=== PATIENT | male | born 1950 | race Caucasian/White ===

== ENCOUNTER 2016-09-16 12:32 | Inpatient (IN) | payer OTHER ==
[2016-09-16] VITALS (22 sets, daily range): BP systolic 96–161; BP diastolic 55–98; PULSE 69–99; RESP 12–20; O2SAT 93–99
[~2016-09-16] VITALS: Ht 188 cm; Wt 132.8 kg
[2016-09-16] MEDS ORDERED: Nitroglycerin 2% 1 Gm Ointment TOPICAL ONE ×2 (12:54→13:00)
--- NOTE | 2016-09-16 12:57 | ED.REPORT ---
HPI-Chest Pain 40 and Over Date of Service Sep 16, 2016 ED Provider: Geovanni Jimenez MD 65 year old male presents to the ER accompanied by his due to chest pain that awakened him from sleep at 03:00 this morning. He states that symptoms have been improving since onset and are currently mostly resolved with only a mild substernal discomfort. He also reports radiation of pain and numbness through his left shoulder and arm. Associated symptoms include nausea and diaphoresis. Patient takes 81mg ASA daily. Nursing Notes Stated Complaint: CHEST PAIN/SHOULDER PAIN Chief Complaint: Chest Pain Nursing Notes Reviewed: Yes Allergies: Coded Allergies: Penicillins (Verified Allergy, Unknown, 09/16/16) General Time Seen by MD: 12:56 Chief Complaint Chest pain Hx Obtained From: Patient, Spouse Arrived By: Walk-in Sudden in Onset?: Yes Onset Occurred: 9 - 12 hours ago (03:00) Symptom Duration: Since onset Location: : Substernal Quality: Painful Radiation: : Arm left Severity: Current: Moderate Severity: Maximum: Moderate Associated with: Reports: Diaphoresis, Nausea, Numbness/Tingling, Denies: Vomiting Pertinent Negative: Pt denies other symptoms Past Medical History Smoking History Unknown if Ever Smoker Social History Other Social History: Good social support, Ambulatory Status Independent Review of Systems Constitutional: Denies: Chills, Fever Respiratory: Denies: Non-productive cough, Shortness of breath Cardiovascular: Reports: Chest pain GI: Reports: Nausea, Denies: Vomiting Musculoskeletal: Reports: Extremity pain (Left arm), Joint pain Skin: Reports Diaphoresis Neurologic: Reports: Numbness (Left arm) Complete sys rev & neg: except as marked. Physical Exam Initial Vital Signs Vital Signs (First) Date Time Temp Pulse Resp B/P Pulse Ox O2 Delivery O2 Flow Rate FiO2 09/16/16 12:35 36.9 94 15 161/98 97 Room Air Initial VS: Reviewed Head / Eyes: Atraumatic, Normocephalic Neck: Supple, Non-tender, Full range of motion Extremities: Vascular intact, Neuro intact, No swelling, No tenderness Skin: Warm, Dry, No cyanosis Neurologic: Alert, Oriented, Nonfocal Psychiatric: Mood/affect normal, Behavior normal, Normal thought content General/Constitutional: Awake, Alert, Well developed, Well nourished Appearance / Presentation: Positive: Obese Respiratory / Chest: Breath sounds NL, Breath sounds = bilat, No respiratory distress, No rales, No rhonchi, No wheezing, No stridor, No chest tenderness Cardiovascular: Heart rate NL, Regular rhythm, Heart sounds NL, No murmurs, Peripheral circulation NL, Pulses = bilaterally, No gross BP differential Abdomen: Soft, Non-tender, No guarding, No rebound, No distention Interpretation & Diagnostics Lab Results Interpretation Result Diagram: 09/16/16 1245 Test 09/16/16 12:45 White Blood Count 7.1th/mm3 (3.8-10.1) Red Blood Count 5.40mil/mm3 (4.40-5.80) Hemoglobin 16.4g/dL (13.8-17.2) Hematocrit 47.5% (41.0-50.0) Mean Corpuscular Volume 88.0fL (81-100) Mean Corpuscular Hemoglobin 30.4pg (27.0-35.0) Mean Corpuscular Hemoglobin Concent 34.5% (32.0-37.0) Red Cell Distribution Width 14.3% (12.3-15.4) Platelet Count 210bil/L (150-400) Neutrophils (%) (Auto) 70.9% (40-74) Lymphocytes (%) (Auto) 17.5% (14-46) Monocytes (%) (Auto) 8.3% (4-12) Eosinophils (%) (Auto) 2.1% (0-5) Basophils (%) (Auto) 0.8% (0-3) Hold Thompson Top Tube Received (Received) ECG Interpretation ECG Interpretation: Sinus rhythm, rate 80 Acute lateral infarct STEMI Time: 12:52 Interpreted by: ED physician Re-Eval/Medical Decision Med Decision/Clinical Course I saw the ECG at 12:52 and immediately went into the patient room. Source of Hx: Old records Time of Eval: 13:04 Re-Evaluation/Progress Note: Discussed need for admission. Patient is amenable to the plan. All other questions addressed. Consultation : Referral / Consult Name: Mustapha Pérez MD Consulted With: Cardiology Call Returned at: 13:07 Note: Supervisor [employer] is now present. Discussed patient case with Dr. Pérez. Counseled Regarding: Diagnosis, Lab results, Need for admission Discharge & Departure Primary Impression: STEMI (ST elevation myocardial infarction) Additional Impression: Chest pain Disposition: ADMITTED TO HOSPITAL Discharge Condition All VS Reviewed: Yes Condition: Stable Crit Care Except Billable Proc Time Spent: 30-74 minutes Services Performed: Patient management by me, Time spent at bedside, Reviewing test results, Reviewing imaging, Discussing patient care, Documentation in record, Time with fam/surrogate Scribe Attestation Portions of this note were transcribed by Heraclio Kelley. I, Dr. Jimenez, personally performed the history, physical exam and medical decision-making; I reviewed and confirmed the accuracy of the information in the transcribed note. Signed by: Chayo Soto, 09/16/2016 and 13:22 Geovanni Jimenez MD Sep 16, 2016 12:56 HERACLIO KELLEY Sep 16, 2016 13:10 Geovanni Jimenez MD Sep 16, 2016 12:56 HERACLIO KELLEY Sep 16, 2016 13:10
[2016-09-16] MEDS ORDERED: Ondansetron 2 mg/mL 2 mL Inj IVPUSH ONE (13:00)
[2016-09-16] MEDS ORDERED: Heparin 5,000 Unit/mL Inj IVPUSH ONE (13:00)
[2016-09-16] MEDS ORDERED: Heparin 25K Unit/500mL 0.45 NS 25,000 UNIT in IV Premix 1 EACH IV SCH (13:00)
[2016-09-16] MEDS ORDERED: Heparin 5,000 Unit/mL Inj IVPUSH PRN (13:00)
[2016-09-16] MEDS ORDERED: MeTOProlol 1 mg/mL 5 mL Inj IVPUSH PRN (13:00)
[2016-09-16 13:02] LABS: BASOPHILS % (AUTO) 0.8 % (0-3); EOSINOPHILS % (AUTO) 2.1 % (0-5); MONOCYTES % (AUTO) 8.3 % (4-12); Mean Corpuscular Hemoglobin 30.4 pg (27.0-35.0); NEUTROPHILS % (AUTO) 70.9 % (40-74); Platelet Count 210 bil/L (150-400)
[2016-09-16] MEDS ORDERED: Heparin 1,000 Unit/mL 10 mL Inj ONE ×2 (13:04→13:36)
[2016-09-16] MEDS ORDERED: Nitroglycerin 50,000 mcg/250 mL D5W Premix IV ONE (13:04)
[2016-09-16] MEDS ORDERED: Heparin 5,000 Units/500 mL NS Premix IV ONE ×2 (13:04→13:43)
[2016-09-16] MEDS ORDERED: Heparin 1,000 Units/500 mL NS Premix IV ONE (13:04)
[2016-09-16] MEDS ORDERED: fentaNYL-PF 50 mCg/mL 2 mL Inj ONE (13:23)
[2016-09-16 13:40] LABS: Magnesium 1.8 mg/dL (1.6-2.6)
[2016-09-16 13:49] LABS: TROPONIN T 0.048 ug/L (0.0-0.011)
[2016-09-16] MEDS ORDERED: Atropine 1 mg/10 mL (Code) Syringe ONE (13:49)
[2016-09-16] MEDS ORDERED: Phenylephrine/NS-PF 100 mCg/mL 5 mL Syringe IVPUSH ONE (13:49)
[2016-09-16] MEDS ORDERED: Ondansetron 2 mg/mL 2 mL Inj ONE (13:52)
[2016-09-16] MEDS ORDERED: Alum-Mag Hydrox-Simeth 30 mL Suspension PO PRN (15:45)
[2016-09-16] MEDS ORDERED: Ondansetron 2 mg/mL 2 mL Inj IVPUSH PRN (15:45)
--- NOTE | 2016-09-16 15:54 | PCM.HPMED ---
Subjective Date of Service Sep 16, 2016 Primary Provider: Admitting Physician: Primary Care Physician: Gil Mckeon MD Attending Physician: Mustapha Pérez MD Chief Complaint: Chest shoulder pain HISTORY was OBTAINED FROM PATIENT / MEDITECH NOTES History of present illness 65-year-old male with woke up at 3 in the morning because of chest pain substernal radiates left shoulder arm with nausea sweating, found to have a STEMI, PDA was occluded and stented by Dr. Pérez. Patient had vagal symptoms and arrhythmia post procedure but has stabilized. No prior MIs, Intermittent shortness of breath associated with irregular heartbeat appears to be associated with pauses, full primary care workup with an echo and stress EKG previously. 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 - 115/67, 96% room air, pulse 75 Review of Systems - none of the following - F/C/sick contact / LALA / lightheaded / dizziness / sob / cough / cp / n/v/diarrhea / bleeding/bruising / change in voiding // rash ambulates Intermittent acid reflux depending on food and excessive fluid intake at times FAMILY HX diabetes CVA SOCIAL HX never smoker no alcohol no illicit drug use MEDICATIONS Aspirin 81 daily Ibuprofen for arthritis Past Medical/Surgical HX Cholecystectomy tonsillectomy osteoarthritis irregular heartbeat chronic low back pain varicose veins Ankle swell left greater than right right mi diffuse purpura type of dermatitis managed by primary care No prior PVD no claudication Allergies Coded Allergies: Penicillins (Verified Allergy, Unknown, 09/16/16) PMH Social History Hx Alcohol Use: Yes Alcoholic Drinks Per Day: occasional Hx Substance Use: No Smoking Status: Unknown if Ever Smoker Exam Vital Signs Vital Sign - Last Date Time Temp Pulse Resp B/P Pulse Ox O2 Delivery O2 Flow Rate FiO2 09/16/16 15:30 76 15 117/60 99 09/16/16 12:35 36.9 Room Air Lab and Diagnostics Labs Exam on admission On room air NAD A and O x 3 mood affect WNL NC/AT no icterus no injected eyes EOMI PERRL /no pharyngeal lesions/ no oral lesions / hearing intact Supple neck CTAB equal chest rise / no accessory muscle use / speaks in full sentences / no rrw RRR S1 S2 / no mrg / 2+ radial pulses Soft nt nd + BS no hepatosplenomegaly Mild edema bilateral lower extremities ankles no cyanosis no ecchymosis of lower extremities No jaundice JARRETT Varicose veins of bilateral shins Dermatitis right mi dark diallo/purple diffuse, dermatitis left superior mi red /petechial Right groin dressed clean dry and intact Bilateral shins without hair Pulses need to be dopplered on bilateral feet EKG sinus rhythm 80, ST depression in inferior leads, ST elevation in lateral leads>>> resolved post cath Trop 0.048 in the ER at 1 PM Creatinine 0.89 LFT normal Imaging CXR pending Result Diagram: 09/16/16 1245 09/16/16 1245 Assessment & Plan Active issues and reason for admission STEMI, PDA occluded and stented -- started Effient aspirin IV fluids statin A1c pending lipid panel -- Anticipate cardiology to start metoprolol and lisinopril in the morning or later -- Pending echo Glucose 114 -- A1c pending Chronic peripheral lower extremity edema using avani hose at home w/ NO PVD, NO claudication, despite hairless legs/weak lower extremity pulses - chronic likely --encouraged exercise and to monitor hypotension w/ new bp meds he'll be taking intemrittent GERD --curb diet --trial famotidine, anticipate no need at home when diet is curbed. Chronic issues known prior to admission, present on admission osteoarthritis chronic low back irregular heartbeat Ankle swell left greater than right right mi diffuse purpura type of dermatitis managed by primary care --prn morphine Diet cardiac DVT prophylaxis heparin ambulate Code full inpatient status Assessment and plan were discussed with patient family. Davidson Cox MD Sep 16, 2016 15:54
--- NOTE | 2016-09-16 17:04 | CS94 ---
[address] [address] DIAGNOSTIC CARDIAC CATHETERIZATION PATIENT: GIAN CRAIG : 1950 MR#: [id number] ADMIT: 09/16/2016 JOB ID: [id number] SERVICE DATE: 09/16/2016 FIELD ARTILLERY OPERATIONS SPECIALIST: Mustapha Pérez MD PROCEDURES: 1. Coronary angiogram, emergent. 2. Left heart catheterization (LHC). Pressure measurement. 3. Percutaneous coronary intervention (PCI). Xience drug-eluting stent (CATARINO). INCOMPLETE DICTATION: Dictation ends here. NOTE: Dictation interrupted. See subsequent complete procedure note. ET. MTDD
--- NOTE | 2016-09-16 18:38 | NUR ---
[facility] Patient to [facility] bed 2 from nitriles lab technician at 1445. at bedside. Right groin perclose developed an ooze when MD checking groin. Femstop placed at 50 mmHg for 1 1/2 hr. Removed at 1630. No further bleeding noted. No hematoma. Pedal pulses present pr doppler. Taking PO and void pr urinal. C/O 1/10 pain in right knee on arrival which resolved to 0/10. Transferred by bed to room 2022 at 1830. Report to receiving RN.
--- NOTE | 2016-09-16 18:54 | CS94 ---
[address] [address] DIAGNOSTIC CARDIAC CATHETERIZATION PATIENT: GIAN CRAIG : 1950 MR#: [id number] ADMIT: 09/16/2016 JOB ID: [id number] PROCEDURE NOTE--CARDIAC CATHETERIZATION LABORATORY DATE OF PROCEDURE: September. BAGGAGE PORTER HEAD: Mustapha Pérez M.D. PROCEDURES: 1. Cardiac Catheterization: a. Coronary Angiogram--Emergent. b. Left Heart Catheterization (LHC)--Pressure Measurement. 2. Percutaneous coronary intervention (PCI)--Xience CATARINO 2.5 x 15 mm of Dstal PDA. CLINICAL DETAILS: This 65-year-old man--who has untreated borderline hypertension and no prior history of heart disease--presents by personal vehicle to the Emergency Department today about 9.5 hours after the onset of severe retrosternal chest pressure. After about 6 hours, his pressure was substantially relieved; but there is still mild residual chest discomfort. ECG shows ST straightening and mild ST elevation in leads I and aVL with inferior ST depression. PROCEDURAL DETAILS: I evaluated him emergently and discussed with him and his regarding the findings, impressions and management, considerations including the recommendation to proceed emergently to cardiac catheterization and anticipated PCI. We discussed the procedure including the benefits as well as possible risks and complications. We discussed bleeding infection, blood clot; as well as injury to nerve, artery, vein or kidney; and also arrhythmia, drug reaction; or others. We discussed treatment as needed including surgery, pacemaker, transfusion. We discussed more serious complications that are possible in this life-threatening clinical setting including stroke, heart attack, and emergency surgery including transfer for coronary bypass surgery. After discussion and questions, he signed informed consent to proceed. In the emergency department, he received aspirin 324 mg and Heparin IV bolus. He was taken to the catheterization laboratory emergently where he was prepped sterilely and draped. CORONARY ANGIOGRAM: Arterial access was obtained without difficulty in the right common femoral artery using fluoroscopic localization over the femoral head and modified Seldinger technique to insert a 6-Luxembourgish 10 cm side-arm sheath. Catheters were advanced and exchanged over a 0.0135 inch J-tipped guide wire. First, the right coronary artery was imaged using a 6-Luxembourgish JR-4 catheter. Then, the left coronary artery was engaged using a 6-Luxembourgish JL-4 diagnostic catheter. At the end of the procedure, a catheter was placed in the LVED and measurements were made including LVED and pullback. PCI OF DISTAL PDA (posterior descending artery): The diagnostic angiogram was reviewed. Decision was made to proceed with emergent intervention of the occluded distal PDA. Procedural anticoagulation was obtained with bolus IV heparin to achieve therapeutic ACT. Prior to the Intervention, he received a loading dose of prasugrel 60 mg p.o. Aliquots of NTG IC were used as needed during the intervention. The RCA was engaged with a 6-Luxembourgish JR-4 guide catheter. The occluded PDA was crossed with a BMW wire--0.014 inches x 190 cm--placed distally in the PDA. Then, the artery was opened with a Trek balloon--2.5 x 15 mm--and inflated to 6 atmospheres across the occlusion. The artery was open and improved. There was a residual subtotal 95% tubular lesion in the distal PDA. The patient had some reperfusion arrhythmias including mild bradycardia and hypotension which were treated with bolus doses of Zach-Synephrine 100 mcg IV. He was overall stable. Estimated DTB 74 minutes. STENT: The lesion was next treated with a drug-eluting stent (CATARINO)--Xience 2.5 x 15 mm--deployed across the lesion at 10 atmospheres. POSTDILATATION : The proximal part of the stent was postdilated with a noncompliant Trek NC balloon--2.5 x 8 mm--inflated at 16 atmospheres. There is an excellent angiographic result with resumption of JUDY-3 flow; no residual lesion; and no evident angiographic complication. Procedure without difficulty. Patient tolerated the procedure well. No complications. A side-arm sheath angiogram shows adequate access for a closure device. Arterial hemostasis was obtained without difficulty with a Perclose suture. There was some tract oozing that responded to manual pressure. The patient was transferred from the catheterization laboratory chest-pain free, improved, and stable, to the [facility] unit for ongoing care including by the admitting hospitalist team. I discussed the procedure, findings and management considerations with the patient, with his , with the Hospitalist team and with Cardiology. FINDINGS: 1. LMCA: The left main coronary artery is large and intact. 2. LAD: The left anterior descending coronary artery is a large vessel, reaching just around the apex. Its distribution includes three small diagonals. There are no angiographically significant LAD lesions. 3. LCX: The left circumflex coronary artery has a large distribution, and includes one large obtuse marginal with no angiographic obstructive lesions. 4. RAMUS: There is a large branching ramus vessel with no angiographic obstructive lesions. 5. RCA: Dominant. The right coronary artery is a very large vessel with some tortuosity. There is a moderate to large sized right posterolateral branch. The PDA is large in its proximal portion and then occluded. When opened there is a residual subtotal tubular 95% lesion in the Mid PDA. The PDA tapers rapidly after the lesion and terminates as a much smaller vessel shortly after the lesion. 6. LHC: LVED 15 mmHg; and no systolic gradient on pullback across the aortic valve. CONCLUSIONS: 1. ACS (acute coronary syndrome)--presentation with atypical ECG with ST elevation that is atypical for the location of the occluded culprit artery. 2. PCI-Distal PDA; Xience CATARINO 2.5 x 15 mm. 3. CAD (Coronary Artery Disease)--Single-vessel CAD of PDA. RECOMMENDATIONS: 1. ECASA--indefinitely. 2. Prasugrel--plan prasugrel for one year if well tolerated including with ongoing cardiology followup. I discussed with the patient and his not to miss prasugrel for any reason without immediate cardiology consultation. 3. Echocardiogram. 4. OMT--guideline-directed optimal medical therapy including for his apparent hypertension including aspirin, prasugrel, statin, beta-rochelle and consideration of BESSIE inhibitor. [facility]
--- NOTE | 2016-09-16 18:58 | CONS ---
[address] [address] CONSULTATION REPORT PATIENT: GIAN CRAIG : 1950 MR#: [id number] ADMIT: 09/16/2016 JOB ID: [id number] DATE OF SERVICE: 09/16/2016 CARDIOLOGY CONSULTATION NOTE--INITIAL CRITICAL CARE EVALUATION(EMERGENCY DEPARTMENT): DATE OF EVALUATION: FRIDAY, SEPTEMBER 16, 2016 CONSULTING PHYSICIAN: Cardiology--Mustapha Pérez MD. PROBLEM LIST: 1. Acute coronary syndrome (ACS): Chest pain. Presenting with ischemic time 9-1/2 hours after the onset of chest pain. ST-elevation myocardial infarction (STEMI): Atypical ECG with ST elevation in leads L1 and aVL; and inferior ST depression. Coronary Artery Disease (CAD) risk factors: a. Hypertension--History of borderline blood pressure; not treated. b. No history of diabetes. c. No history of treated hyperlipidemia. d. No family history of premature coronary disease. e. Lifetime nonsmoker. OTHER PROBLEMS: Morbid obesity. CHIEF COMPLAINT: 1. Chest pain. 2. Called by the ED for ST-elevation myocardial infarction (STEMI). HISTORY OF PRESENT ILLNESS: I came to see this 65 yo patient emergently when called for a "STEMI activation " after he presented by personal vehicle to the Emergency Department(ED). He has no prior history of heart disease and no recent premonitory symptoms. This morning he was awakened at 3 a.m. with severe retrosternal chest pressure radiating to his upper chest and arms. He had some associated vagal symptoms with nausea and some tenesmus. He was not short of breath. After 3 hours the most severe pain abated, but on presentation he still had 2/10 to 3/10 residual chest discomfort. In the ED he was otherwise stable, with systolic hypertension. He was treated with aspirin 324 mg; and heparin bolus. CARDIAC HISTORY: He has no prior history of heart disease and no symptoms of chest pain, angina, effort limitation, or effort-related symptoms. He has no symptoms of heart failure such as nocturnal dyspnea, or edema. He has no symptoms of arrhythmia beyond reporting history of "extra beats" with no further details. He has no history of other symptoms of arrhythmia such as TachyPalpitations, presyncope, or syncope. Regarding other possible underlying vascular disease, he has no history of CVA or current symptoms of TIA. No claudication. Regarding possible dual antiplatelet therapy he has no anticipated upcoming surgery; no current bleeding symptoms; and he indicates he would be reliable to take mandatory medicines as needed. ALLERGIES: PENICILLINS. I elicit no history of allergy to medical contrast, seafood, fish, iodine, or shellfish. MEDICATIONS: ASA 81 mg daily. PAST MEDICAL HISTORY: 1. History of "pancreatitis" and a cholecystectomy. 2. He indicates he is otherwise usually healthy and not treated for other medical problems. REVIEW OF SYSTEMS: I questioned him and his expeditiously in the emergent setting regarding a 13-point review of systems which is otherwise unremarkable, noncontributory, or negative, includin. No history of thyroid disorder. 2. No history of pulmonary disorder, asthma, wheezing, or dyspnea. 3. No history of GI disorder including hepatitis, ulcer, jaundice, or indigestion. PERSONAL AND SOCIAL HISTORY: Cigarettes: Lifetime nonsmoker. ETOH: He reports he uses almost no alcohol. Family: He lives with his here in [facility]. 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 FAMILY HISTORY: No family history of premature coronary disease. PHYSICAL EXAMINATION: General appearance: Pleasant well-developed, middle-aged man who appears comfortable in the emergency department. Note Morbid obesity. Vital signs: Blood pressure 157/85. Heart rate 67, regular, in sinus rhythm on telemetry. SpO2 96% on nasal cannula. Weight 122 kg. Respiratory rate 18 and nonlabored. Neurologic and mental status: No overt focal neurologic defect noted. He is alert, oriented, appropriate, and conversant. HEENT: PERRL. Conjunctivae pink. Sclerae not icteric. Mouth and mucous membranes intact with Mallampati four. Neck: Carotid upstroke intact bilaterally without bruit. Jugular venous pressure difficult to assess due to body habitus supine. No palpable thyromegaly. No palpable cervical lymphadenopathy. Lungs: Clear to auscultation bilaterally examined supine. Cardiac: No chest wall tenderness. Distant heart sounds but otherwise unremarkable cardiac examination, with regular rhythm, S4, and no loud murmur. Abdomen: Morbid obesity, but otherwise unremarkable examination, without tenderness, mass, hepatosplenomegaly, or bruit of abdominal aortic aneurysm. Extremities: Note chronic stasis changes in the lower legs bilaterally, but no pitting edema. Pedal pulses are present bilaterally. DIAGNOSTIC STUDIES: Electrocardiogram: The initial ECG shows sinus rhythm with ST straightening and mild ST elevation in lead L1 and aVL. There is horizontal ischemic appearing ST depression in the inferior leads. The initial impression includes consideration of a diagonal lesion with ST elevation and reciprocal inferior changes. Interestingly the occluded artery was the right coronary artery. Note also in the catheterization laboratory the monitor leads showed apparent mild ST-elevation in inferior leads. CHEST X-RAY: Pending at the time of catheterization. LABORATORY: Pending at the time of the catheterization. Results returned during the procedure including: CBC includes WBC 7100, with hemoglobin 16.4, hematocrit 47.5, and normal indices with platelet count 210,000. Chemistries include a potassium 4.5, creatinine 0.89, glucose elevated at 114, and magnesium 1.8. LFT unremarkable. Initial troponin slightly elevated at 0.048. ASSESSMENT: I discussed my findings, impressions, and management considerations with the Patient and his , as well as with the Emergency Department physician, and later with the admitting Hospitalist and Cardiology, includin. Acute coronary syndrome (ACS): Chest pain and atypical ECG with lateral ST elevation. He presents with severe chest pain that is mostly resolved; but there is still mild chest pain present. ECG shows ST elevation in lateral leads. Interestingly it is atypical for the location of the infarct-related artery that was ultimately found to be the PDA. He was otherwise clinically stable except for hypertension. We proceeded emergently to the catheterization laboratory. RECOMMENDATIONS: 1. Cardiac catheterization and anticipated PCI--Emergent. 2. Chest X-ray. 3. Echocardiogram. 4. OMT--Guideline directed optimal medical therapy including aspirin, dual antiplatelet therapy, beta-rochelle, high-intensity statin, and consideration of BESSIE inhibitor later. 5. Guideline directed management of underlying risk factors. Note probable untreated hypertension. MTDD
[2016-09-16] MEDS ORDERED: Atropine 1 mg/10 mL (Code) Syringe IVPUSH PRN (19:35)
[2016-09-16] MEDS ORDERED: 0.9% Sodium Chloride 400 ML (4 HRS) IV ONE (19:35)
[2016-09-16] MEDS ORDERED: 0.9% Sodium Chloride 250 ML BOLUS IV PRN (19:35)
[2016-09-16] MEDS ORDERED: Sodium Chloride LOK Flush 10 mL Syringe IVFLUSH PRN (19:35)
--- NOTE | 2016-09-16 19:43 | NUR ---
Arrived to PCC Patient arrived to PCC with Keyana ALBARRAN from [facility] at approximately 1845 . Patient to remain on bedrest untill 2100 with bed at 30 degrees for eating only. Patient right groin with bandage, no signs of bleeding, no pain on palpation. Patient ready to eat dinner with at bedside. Continued NS at 80 mls/hr per EMAR. Patient denies pain at this time. Reported to storm window installer nurse, at shift change, both RNs saw and palpated right groin. Care continues.
[2016-09-16] MEDS: 0.9% Sodium Chloride 1,000 ML IV SCH (21:39)
--- NOTE | 2016-09-16 22:12 | DRSVH ---
PROCEDURE: X-RAY CHEST ONE VIEW, PORTABLE ([id number]) INDICATIONS: chest pain TECHNIQUE: One view of the chest was acquired. COMPARISON: None. FINDINGS: Surgical changes and devices: court monitor leads are seen over the chest. Lungs and pleura: No pleural effusions or pneumothorax. Lungs are clear. Pulmonary vasculature is normal. Mediastinum: Mediastinal contours appear normal. There is mildly elongated. Heart size is normal. Bones and chest wall: No suspicious bony lesions. Overlying soft tissues appear unremarkable. IMPRESSION: Acute disease is not identified in the chest. Cause of pain is not identified Dictated by: Ramirez Castanon M.D. on 09/16/2016 at 22:11 Approved by: Ramirez Castanon M.D. on 09/16/2016 at 22:11
[2016-09-17] VITALS (9 sets, daily range): BP systolic 109–146; BP diastolic 71–82; PULSE 62–83; RESP 16–20; O2SAT 94–96
[2016-09-17 04:12] LABS: BASOPHILS % (AUTO) 0.7 % (0-3); EOSINOPHILS % (AUTO) 2.2 % (0-5); MONOCYTES % (AUTO) 9.9 % (4-12); Mean Corpuscular Hemoglobin 30.1 pg (27.0-35.0); NEUTROPHILS % (AUTO) 63.4 % (40-74); Platelet Count 186 bil/L (150-400)
[2016-09-17] MEDS: 0.9% Sodium Chloride 1,000 ML IV SCH ×3 (04:58→23:37)
--- NOTE | 2016-09-17 05:50 | NUR ---
GROIN SITE/CPAP Pt had a stent to the RCA, right femoral access, dressing CDI. 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 Pt's migraine subsided, and no other pain or issues noted throughout the night. Vitals remained stable, pt wore home CPAP machine with no issues.
--- NOTE | 2016-09-17 13:07 | DRSVH ---
[facility] [address] [place] [address] Echocardiogram Report Name: GIAN CRAIG LStudy Date: 09/17/2016 Height: 74 in Hospital Exam Location: [facility] Weight: 287 lb Gender: Male BSA: 2.5 m2 : 1950 Age: 65 yrs BP: 115/71 mmHg Reason For Study: POST STEMI Ordering Physician: Performed By: Nicholas Peña Referring Physician: ISELA SAEZ Interpretation Summary 1) Mild concentric left ventricular hypertrophy with normal left ventricular size and systolic function (EF 55-60%). 2) Mid to distal inferior wall is hypokinetic. 3) Normal right ventricular size and function. 4) Mild aortic regurgitation present. 5) Mildly enlarged ascending aorta (diameter 4.2cm). 6) No prior Echo available for comparison. Procedure: A two-dimensional transthoracic echocardiogram with color flow and Doppler was performed. The study quality was technically adequate. A contrast injection of Definity was performed to improve assessment of LV function. There is no prior echocardiogram noted for this patient. The patient was in normal sinus rhythm during the exam. Left Ventricle: The left ventricle is normal in size. There is mild concentric left ventricular hypertrophy. The ejection fraction is estimated to be 55-60%. Mid to distal inferior wall is hypokinetic. Right Ventricle: The right ventricle is normal in size, thickness and function. Atria: The left atrium is mildly dilated. Right atrial size is normal. The interatrial septum is intact with no evidence for an atrial septal defect. Mitral Valve: The mitral valve is normal. There is no mitral regurgitation noted. Aortic Valve: The aortic valve is trileaflet. The aortic valve opens well. There is no aortic valve stenosis. There is mild aortic regurgitation. Tricuspid Valve: The tricuspid valve is normal. Pulmonary artery pressures cannot be estimated because of the lack of a measurable TR jet velocity. Pulmonic Valve: The pulmonic valve is not well seen, but is grossly normal. There is a trace or physiologic amount of pulmonic regurgitation. Great Vessels: The aortic root is normal size. The ascending aorta is mildly enlarged. The pulmonary artery is normal size. The inferior vena cava was not visualized. Pericardium/ Pleura There is no pericardial effusion. There is no pleural effusion. MMode/2D Measurements & Calculations LVIDd: 5.0 cm RA long axis: 4.8 cm LVOT diam: 2.5 cm LVIDs: 3.0 cm LA A2 area: 26.2 cm AoV Opening FS: 39.8 % LA A4 area: 22.6 cm RA area: 16.7 cm EPSS: 0.98 cm LA length (vol) RA vol: 49.4 ml Ao root diam IVSd: 1.2 cm RA : 19.5 ml/m2 LVPWd: 1.1 cm LA vol: 88.2 ml asc Aorta Diam LA vol index Ao Arch Diam (Prox : 34.8 ml/m2 Trans): 3.8 cm EDV(MOD-sp2) LV carrera. diameter/BSA LV sys. diameter/BSA : 123.7 ml (cm/m^2): 2.0 (cm/m^2): 1.2 Doppler Measurements & Calculations Ao V2 max: 136.5 cm/secMV E max levar MV E/A: 1.3 PA V2 max Ao max P.5 mmHg : 95.1 cm/sec Med Peak E' Levar : 59.9 cm/sec Ao mean P.6 mmHg MV A max levar PA mean PG LVOT Max Levar : 71.1 cm/sec E/E' med: 17.7 : 0.85 mmHg : 111.8 cm/sec Lat Peak E' Levar ANALISA(I,D): 4.6 cm E/E' lat: 11.9 sev ratio: 0.93 E/e' average MV dec time: 0.17 sec Ao V2 mean LV V1 max PG PA V2 mean : 88.4 cm/sec : 44.4 cm/sec Ao V2 VTI: 26.5 cmLV V1 VTI: 24.5 cm PA pr(Accel) : 19.1 mmHg ANALISA(V,D): 4.1 cm2 ANALISA indexed to BSA (cm^2/m^2): 1.8 Reading Physician:01:07 PM
[2016-09-17] MEDS ORDERED: ATOR20TA65 PO (13:31)
[2016-09-17] MEDS ORDERED: PRAS10TA5 PO (13:31)
[2016-09-17] MEDS ORDERED: ASPI81TA3 PO (13:31)
[2016-09-17] MEDS ORDERED: NITR0.4T SL (13:31)
--- NOTE | 2016-09-17 14:37 | PROG NOTE ---
[address] [address] PROGRESS NOTE PATIENT: GIAN CRAIG : 1950 MR#: [id number] ADMIT: 09/16/2016 JOB ID: [id number] CARDIOLOGY CONSULTATION PROGRESS NOTE -- FOLLOW-UP INPATIENT VISIT: DATE OF EVALUATION: Saturday, September 17, 2016. CONSULTING PHYSICIAN: Cardiology -- Mustapha Pérez MD. PROBLEMS: 1. ACS (acute coronary syndrome): a. Acute inferior myocardial infarction presenting 9 hours after onset of chest pain; and with atypical ECG. b. PCI (percutaneous coronary intervention) -- Xience CATARINO (2.5 x 15 mm), distal right PDA. POST PERCUTANEOUS CORONARY INTERVENTION COURSE: Hosptiatl Day 2: I saw this 65-year-old man on cardiology rounds this morning after he was admitted yesterday with chest pain, ECG with ST elevation and emergent PCI of culprit occluded distal RPDA. He did well with resolution of his chest discomfort. He has remained well since without any further chest discomfort or other cardiac symptoms. His right femoral artery groin access site has been intact. He has been in bed most of the nightl and just got up to ambulate to the bathroom twice this morning. He feels great, ready to go home and has had no difficulty. Regarding post PCI parameters, he has had vigorous urine output. OBJECTIVE: PHYSICAL EXAMINATION: General appearance: He appears well and much improved from his initial presentation yesterday. He standing up without difficulty in the room. Vital signs: Vital signs stable with blood pressure 146/80. Heart rate 75, regular. Heart and lungs: Stable exam with clear lungs, and regular rhythm with S4 gallop noted. Extremities: The right groin access site has only small ecchymosis; and no hematoma. It is intact without pulsatile mass or bruit. The distal pedal pulses difficult to feel; but perfusion is fully intact. Overall impression is excellent post catheterization status. DIAGNOSTIC STUDIES: ELECTROCARDIOGRAM: I reviewed this morning's ECG tracing, which shows resolution of the ST elevation. He has now developed serial changes of his infarct as expected including now Q-waves inferiorly. Interestingly, his initial ECG had showed ST elevation in lead L1 and aVL with actually ST depression inferiorly which was atypical but may reflect the distal PDA distribution. Overall impression is ECG is satisfactory. LABORATORY: I reviewed his laboratory results including creatinine satisfactory now at 1.04. His lipids are notably abnormal with cholesterol total of 205, LDL high at 144 with HDL only 28 and triglycerides 161. ASSESSMENT: 1. Acute coronary syndrome after primary percutaneous coronary intervention of distal posterior descending artery. I discussed the findings, impressions and management considerations at length with him and additionally with his when she arrived. We discussed his infarct, the percutaneous coronary intervention procedure and multiple issues for follow-up regarding guideline-directed optimal medical therapy; as well as medications, exercise prescription, important benefits of rehab program and followup with primary physician and with Cardiology. He had questions including regarding nutrition that we discussed. Overall, I was reassuring that he is stable and improved, and his course has been satisfactory. RECOMMENDATIONS: 1. Echocardiogram -- I was able to briefly review selected images of the Echo at the bedside as it was being done. As expected, he has an inferior wall motion defect that is overall relatively modest involving hypokinesia but not akinesia of the mid and distal inferior wall but overall ejection fraction is preserved. 2. Prasugrel -- we discussed it at length the critical importance of mandatory dual antiplatelet therapy and not to miss prasugrel for any reason without immediate cardiology consultation; and plan for prasugrel for one year if well tolerated. 3. Guideline-directed optimal medical therapy including also aspirin, statin, beta-rochelle and consideration of BESSIE inhibitor later. He seems to be tolerating all these well. I told him to be sure to notify if statins cause myalgias over time. 4. Plan to re-ambulate today. I told him we would reconsider discharge in the morning. COLTON
--- NOTE | 2016-09-17 18:29 | NUR ---
Activity Pt. independent in room today, steady gait. No c/o chest pain, SOB, N/V. Pleasant and cooperative. Groin site bruised, but no signs of bleeding. Distal pedal pulse weak. Extremity warm with adequate cap refil. No numbness/tingling in extremities.
--- NOTE | 2016-09-17 18:57 | PCM.PNMED ---
Subjective Date of Service Sep 17, 2016 Subjective Patient has no further chest pain and is in no distress. He is lying flat in bed and her head is only slightly elevated. Patient has no complaints. Exam Vital Signs Vital Sign - Last Date Time Temp Pulse Resp B/P Pulse Ox O2 Delivery O2 Flow Rate FiO2 09/17/16 16:00 36.9 77 18 128/72 96 Room Air Intake and Output 09/16/16 09/16/16 09/17/16 Cumulative From/Thru 15:00 23:00 07:00 09/16/16 12:35 - 09/17/16 06:49 Intake Total 1000 ml 1477 ml 2477 ml Output Total 675 ml 1400 ml 2075 ml Balance 325 ml 77 ml 402 ml Intake Oral 637 ml 637 ml IV Total 1000 ml 840 ml 1840 ml Output Urine Total 675 ml 1400 ml 2075 ml Exam General: Patient is in no apparent distress. He is lying supine in bed without only slightly elevated. HEENT: Head is atraumatic and normocephalic, with normal male pattern baldness. Eyes: Pupils are equally round and reactive to light and accommodation. Extraocular muscles are intact. Sclera are white, anicteric. Subconjunctival mucosa is pink. Ears and nose are unremarkable. Oropharynx: There is no mucosal lesions, there is no thrush, there is no pharyngitis. Neck: Is supple, there are no nodes, or masses or tenderness. Chest: Is clear to auscultation and percussion. There are no rales, rhonchi, wheezes or rubs. Heart: Rate, rhythm is regular. There is no new murmur, rub or gallop. Abdomen: Good bowel sounds are present. Abdomen is soft, nontender, no organomegaly or masses were appreciated. Extremities: Are symmetrical and well perfused. Right femoral cardiac catheterization site is unremarkable. There is no edema, there is no cellulitis , no rash. Neurologic: There are no focal neurological deficits. Cranial nerves II through XII are intact. There are no sensory or motor deficits. Psychiatric: Patients mood is calm and shows no sign of agitation. Genital: Deferred Rectal: Deferred Lab and Diagnostics Result Diagram: 09/17/1635409/[id number]/16354 X-Rays, CTs and MRIs PROCEDURE: X-RAY CHEST ONE VIEW, PORTABLE ([id number]) INDICATIONS: chest pain TECHNIQUE: One view of the chest was acquired. COMPARISON: None. FINDINGS: Surgical changes and devices: groundwater monitoring technician leads are seen over the chest. Lungs and pleura: No pleural effusions or pneumothorax. Lungs are clear. Pulmonary vasculature is normal. Mediastinum: Mediastinal contours appear normal. There is mildly elongated. Heart size is normal. Bones and chest wall: No suspicious bony lesions. Overlying soft tissues appear unremarkable. IMPRESSION: Acute disease is not identified in the chest. Cause of pain is not identified Dictated by: Ramirez Castanon M.D. on 09/16/2016 at 22:11 Approved by: Ramirez Castanon M.D. on 09/16/2016 at 22:11 Cardiac Echo Impressions Echocardiogram Report Name: GIAN CRAIG LStudy Date: 09/17/2016 Height: 74 in Hospital Exam Location: [facility] Weight: 287 lb Gender: Male BSA: 2.5 m2 : 1950 Age: 65 yrs BP: 115/71 mmHg Reason For Study: POST STEMI Ordering Physician: Performed By: Nicholas Peña Referring Physician: ISELA SAEZ Interpretation Summary 1) Mild concentric left ventricular hypertrophy with normal left ventricular size and systolic function (EF 55-60%). 2) Mid to distal inferior wall is hypokinetic. 3) Normal right ventricular size and function. 4) Mild aortic regurgitation present. 5) Mildly enlarged ascending aorta (diameter 4.2cm). 6) No prior Echo available for comparison. Assessment & Plan Patient is a 65-year-old male who woke up at 3 in the morning day of admission because of chest pain that was substernal and radiated to the left shoulder arm with nausea and diaphoresis. Patient came to [facility] emergency room and was found to have a STEMI, PDA was occluded and stented by Dr. Pérez. Patient had vagal symptoms and arrhythmia post procedure but has stabilized. No prior MIs, Patient reported Intermittent shortness of breath associated with irregular heartbeat appears to be associated with pauses, full primary care workup with an echo and stress EKG previously. 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 Active issues and reason for admission STEMI, PDA occluded and stented -- Patient was started on Effient, aspirin and IV fluids statin A1c pending lipid panel -- Anticipate cardiology to start metoprolol and lisinopril in the morning or later -- Pending echo Glucose 114 -- A1c pending Chronic peripheral lower extremity edema using avani hose at home w/ NO PVD, NO claudication, despite hairless legs/weak lower extremity pulses - chronic likely --encouraged exercise and to monitor hypotension w/ new bp meds he'll be taking intemrittent GERD --curb diet --trial famotidine, anticipate no need at home when diet is curbed. Chronic issues known prior to admission, present on admission: -Patient has a history of osteoarthritis, chronic low back -Patient has a history of irregular heartbeat -Patient's Ankle swell left greater than right -The patient's right mi diffuse purpura type of dermatitis managed by primary care --prn morphine Diet cardiac DVT prophylaxis heparin ambulate Code full inpatient status . Pain Evaluation: Adequate Pain Control VTE Prophylaxis: Sub-Q Enoxaparin Resuscitation Status: CPR: Attempt Resuscitation [place],Sanket Holland MD Sep 17, 2016 18:57
--- NOTE | 2016-09-17 20:44 | NUR ---
PATIENT EDUCATION Pt's vitals stable, independent in the room. Right groin site slightly bruised, tender on palpation. Good PO intake of fluids with adequate output. Pt denies any chest pain, SOB or discomfort. Pt eager and excepting of pt education on new medications and diet changes. Pt cooperative and pleasant with care and ready for discharge in the AM.
[2016-09-18 03:20] VITALS: BP 144/81; PULSE 80; RESP 20; O2SAT 94
[2016-09-18 05:35] VITALS: PULSE 72
[2016-09-18 08:18] VITALS: BP 138/84; PULSE 70; RESP 20; O2SAT 96
--- NOTE | 2016-09-18 09:06 | PCM.DIMED ---
Discharge Instructions Date of Service Sep 18, 2016 Dates of Hospitalization Sep 16, 2016 at 18:49 Call your provider Fever or Chills, Shortness of breath, Bleeding, Chest pain, Vomitting, Excessive diarrhea, Weakness (unilateral) Patient Instructions - Follow up with your primary physician within one week of discharge. Follow-up with PCP in: 2 weeks Provider: Mustapha Pérez MD Follow-up in: 4 weeks Kieran Orellana MD Sep 18, 2016 09:05
[2016-09-18] MEDS ORDERED: METO25TA6 PO (09:08)
[2016-09-18] MEDS ORDERED: LISI10TA PO (09:08)
--- NOTE | 2016-09-18 09:11 | PCM.DC.MED ---
Discharge Summary Date of Service Sep 18, 2016 Dates of Hospitalization Date of Hospital Admission Sep 16, 2016 at 18:49 Date of Discharge: Sep 18, 2016 Providers: Admitting Physician: Isela Cox MD Primary Care Physician: Gil Mckeon MD Attending Physician: Isela Cox MD Diagnosis at Time of Discharge Diagnosis at Time of Discharge STEMI Consultations Cardiology consult: ASSESSMENT: Acute coronary syndrome after primary percutaneous coronary intervention of distal posterior descending artery. I discussed the findings, impressions and management considerations at length with him and additionally with his when she arrived. We discussed his infarct, the percutaneous coronary intervention procedure and multiple issues and followup regarding guideline-directed optimal medical therapy; as well as medications, exercise prescription, rehab program and followup with primary physician and Cardiology. He had questions including regarding nutrition that we discussed. Overall, I was reassuring that he is stable and improved, and his course has been satisfactory. RECOMMENDATIONS: 1. Echocardiogram -- I was able to briefly review selected images of the echo at the bedside as it was being done. As expected, he has an inferior wall motion defect that is overall relatively modest involving hypokinesia but not akinesia of the mid and distal inferior wall but overall ejection fraction is preserved. 2. Prasugrel -- we discussed it at length the critical importance of mandatory dual antiplatelet therapy and not to miss prasugrel for any reason without immediate cardiology consultation; and plan for prasugrel for one year if well tolerated. 3. Guideline-directed optimal medical therapy including also aspirin, statin, beta-rochelle and consideration of BESSIE inhibitor later. He seems to be tolerating all these well. I told him to be sure to notify if statins cause myalgias over time. 4. Plan to re-ambulate today. I told him we would reconsider discharge in the morning. Procedures XRay, CTs & MRIs PROCEDURE: X-RAY CHEST ONE VIEW, PORTABLE ([id number]) INDICATIONS: chest pain TECHNIQUE: One view of the chest was acquired. COMPARISON: None. FINDINGS: Surgical changes and devices: playground monitor leads are seen over the chest. Lungs and pleura: No pleural effusions or pneumothorax. Lungs are clear. Pulmonary vasculature is normal. Mediastinum: Mediastinal contours appear normal. There is mildly elongated. Heart size is normal. Bones and chest wall: No suspicious bony lesions. Overlying soft tissues appear unremarkable. IMPRESSION: Acute disease is not identified in the chest. Cause of pain is not identified Dictated by: Ramirez Castanon M.D. on 09/16/2016 at 22:11 Approved by: Ramirez Castanon M.D. on 09/16/2016 at 22:11 Cardiac Echo Impression Echocardiogram Report Name: GIAN CRAIG LStudy Date: 09/17/2016 Height: 74 in Hospital Exam Location: [facility] Weight: 287 lb Gender: Male BSA: 2.5 m2 : 1950 Age: 65 yrs BP: 115/71 mmHg Reason For Study: POST STEMI Ordering Physician: Performed By: Nicholas Peña Referring Physician: ISELA COX Interpretation Summary 1) Mild concentric left ventricular hypertrophy with normal left ventricular size and systolic function (EF 55-60%). 2) Mid to distal inferior wall is hypokinetic. 3) Normal right ventricular size and function. 4) Mild aortic regurgitation present. 5) Mildly enlarged ascending aorta (diameter 4.2cm). 6) No prior Echo available for comparison. Invasive Procedures Cardiac Catheterization: FINDINGS: 1. LMCA: The left main coronary artery is large and intact. 2. LAD: The left anterior descending coronary artery is a large vessel, reaching just around the apex. Its distribution includes three small diagonals. There are no angiographically significant LAD lesions. 3. LCX: The left circumflex coronary artery has one large distribution and includes one large obtuse marginal with no angiographic obstructive lesions. 4. RAMUS: There is a large branching ramus vessel with no angiographic obstructive lesions. 5. RCA: Dominant. The right coronary artery is a very large vessel with some tortuosity. There is a moderate to large sized right posterolateral branch. The PDA is large in its proximal portion and then occluded when opened. There is a residual subtotal tubular 95% lesion in the mid PDA. The PDA tapers rapidly after the lesion and terminates as a much smaller vessel shortly after the lesion. 6. LHC: LVED 15 mmHg; no systolic gradient on pullback across the aortic valve. CONCLUSIONS: 1. ACS (acute coronary syndrome)--presentation with atypical ECG with ST elevation that is atypical for the location of the occluded culprit artery. 2. PCI-distal PDA; Xience CATARINO 2.5 x 15 mm. 3. CAD (coronary artery disease)--single-vessel coronary disease of PDA. RECOMMENDATIONS: 1. ECASA--indefinitely. 2. Prasugrel--plan prasugrel for one year if well tolerated including with ongoing cardiology followup. I discussed with the patient and his not to miss prasugrel for any reason without immediate cardiology consultation. 3. Echocardiogram. 4. OMT--guideline-directed optimal medical therapy including for his apparent hypertension including aspirin, prasugrel, statin, beta-rochelle and consideration of BESSIE inhibitor. Hospital Course Patient is a 65-year-old male who woke up at 3 in the morning day of admission because of chest pain that was substernal and radiated to the left shoulder arm with nausea and diaphoresis. Patient came to [facility] emergency room and was found to have a STEMI, PDA was occluded and stented by Dr. Pérez. Patient had vagal symptoms and arrhythmia post procedure but has stabilized. No prior MIs, Patient reported Intermittent shortness of breath associated with irregular heartbeat appears to be associated with pauses, full primary care workup with an echo and stress EKG previously. 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 Active issues and reason for admission STEMI, PDA occluded and stented -- Patient was started on Effient, aspirin and IV fluids statin A1c pending lipid panel -- Anticipate cardiology to start metoprolol and lisinopril in the morning or later Will discharge on aspirin, effient, statins, lisinopril and metoprolol. 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 Exam Vital Signs (Last) Date Time Temp Pulse Resp B/P Pulse Ox O2 Delivery O2 Flow Rate FiO2 09/18/16 08:18 36.7 70 20 138/84 96 Room Air Exam General: Patient is in no apparent distress. He is lying supine in bed without only slightly elevated. HEENT: Head is atraumatic and normocephalic, with normal male pattern baldness. Eyes: Pupils are equally round and reactive to light and accommodation. Extraocular muscles are intact. Sclera are white, anicteric. Subconjunctival mucosa is pink. Ears and nose are unremarkable. Oropharynx: There is no mucosal lesions, there is no thrush, there is no pharyngitis. Neck: Is supple, there are no nodes, or masses or tenderness. Chest: Is clear to auscultation and percussion. There are no rales, rhonchi, wheezes or rubs. Heart: Rate, rhythm is regular. There is no new murmur, rub or gallop. Abdomen: Good bowel sounds are present. Abdomen is soft, nontender, no organomegaly or masses were appreciated. Extremities: Are symmetrical and well perfused. Right femoral cardiac catheterization site is unremarkable. There is no edema, there is no cellulitis , no rash. Neurologic: There are no focal neurological deficits. Cranial nerves II through XII are intact. There are no sensory or motor deficits. Psychiatric: Patients mood is calm and shows no sign of agitation. Test 09/16/16 12:45 09/17/16 03:55 09/17/16 14:06 Total Bilirubin 0.5mg/dL (0.0-1.2) Aspartate Amino Transf (AST/SGOT) 37U/L (0-50) Alanine Aminotransferase (ALT/SGPT) 42U/L (0-44) Alkaline Phosphatase 82U/L (25-160) Troponin T 0.048ug/L (0.0-0.011) Total Protein 7.4g/dL (6.4-8.4) Albumin 4.2g/dL (3.4-5.0) Hold Thompson Top Tube Received (Received) White Blood Count 6.8th/mm3 (3.8-10.1) Red Blood Count 4.71mil/mm3 (4.40-5.80) Hemoglobin 14.2g/dL (13.8-17.2) Hematocrit 41.9% (41.0-50.0) Mean Corpuscular Volume 89.0fL (81-100) Mean Corpuscular Hemoglobin 30.1pg (27.0-35.0) Mean Corpuscular Hemoglobin Concent 33.9% (32.0-37.0) Red Cell Distribution Width 14.6% (12.3-15.4) Platelet Count 186bil/L (150-400) Neutrophils (%) (Auto) 63.4% (40-74) Lymphocytes (%) (Auto) 23.4% (14-46) Monocytes (%) (Auto) 9.9% (4-12) Eosinophils (%) (Auto) 2.2% (0-5) Basophils (%) (Auto) 0.7% (0-3) Sodium Level 139mEq/L (134-144) Potassium Level 4.8mEq/L (3.5-5.2) Chloride Level 103mEq/L (97-108) Carbon Dioxide Level 24mmol/L (18-29) Blood Urea Nitrogen 12mg/dL (8-27) Creatinine 1.04mg/dL (0.76-1.27) Estimat Glomerular Filtration Rate 77mL/min (>59) Glucose Level 120mg/dL (60-99) Hemoglobin A1c 5.4% (4.8-5.6) Calcium Level 9.1mg/dL (8.5-10.1) Magnesium Level 1.9mg/dL (1.6-2.6) Triglycerides Level 161mg/dL (0-149) Cholesterol Level 205mg/dL (100-199) LDL Cholesterol, Calculated 144.800mg/dL (0-99) VLDL Cholesterol 32.200mg/dL HDL Cholesterol 28mg/dL (>39) Cholesterol/HDL Ratio 7.32 (0.0-4.4) Activated Partial Thromboplast Time 27.3sec (22.8-33.0) Discharge Medications Discharge Medications Aspirin Chew (Aspirin Chew) 81 Mg Chew 81 MG PO DAILY Prescribed by: DARION JIMENEZ MD Atorvastatin Calcium (Atorvastatin Calcium) 20 Mg Tablet 80 MG PO HS Prescribed by: DARION JIMENEZ MD Lisinopril (Lisinopril) 10 Mg Tablet 10 MG PO DAILY Prescribed by: KIERAN MCNALLY MD Metoprolol Tartrate (Metoprolol Tartrate) 25 Mg Tablet 12.5 MG PO BID Prescribed by: KIERAN MCNALLY MD Prasugrel HCl (Effient) 10 Mg Tablet 10 MG PO DAILY Prescribed by: DARION JIMENEZ MD As needed Nitroglycerin SL (Nitrostat) 0.4 Mg Tab.subl 0.4 MG SL Q5MIN PRN PRN For Chest Pain IF SBP > 90 Prescribed by: DARION JIMENEZ MD Followup Plan Disposition: Home Discharge Diet: Heart Healthy Patient Instructions - Follow up with your primary physician within one week of discharge. Follow-up with PCP in: 2 weeks Provider: Mustapha Pérez MD Follow-up in: 4 weeks Kieran Mcnally MD Sep 18, 2016 09:11
[2016-09-18 10:09] VITALS: PULSE 76
[2016-09-18] MEDS ORDERED: METO25TA99 PO (11:18)
[2016-09-18] MEDS ORDERED: PRAS10TA5 PO (11:18)
--- NOTE | 2016-09-18 12:02 | NUR ---
Discharge pt ordered for discharge home. discharge instructions and medications reviewed with patient and . pt offered wheelchair, pt deferred. pt ambulated to main entrance with steady gait and all belongings.
== END 2016-09-18 12:08 | disposition home or self-care (01) | DRG 247 ==
LOC: SED 12:32 → SPI 13:18 → PCC 18:49
PROVIDERS: ADMIT Urology; ATTEND Urology
PROC: 027034Z Dilation of Coronary Artery, One Artery with Drug-eluting Intraluminal Device, Percutaneous Approach (ICD-10-PCS; principal; 2016-09-16)
PROC: 4A023N7 Measurement of Cardiac Sampling and Pressure, Left Heart, Percutaneous Approach (ICD-10-PCS; 2016-09-16)
PROC: B2111ZZ Fluoroscopy of Multiple Coronary Arteries using Low Osmolar Contrast (ICD-10-PCS; 2016-09-16)
PROC: B2151ZZ Fluoroscopy of Left Heart using Low Osmolar Contrast (ICD-10-PCS; 2016-09-16)
DX: I21.29 ST elevation (STEMI) myocardial infarction involving other sites (principal); K21.9 Gastro-esophageal reflux disease without esophagitis; I25.10 Atherosclerotic heart disease of native coronary artery without angina pectoris; G43.109 Migraine with aura, not intractable, without status migrainosus; I10 Essential (primary) hypertension; M47.9 Spondylosis, unspecified; L30.8 Other specified dermatitis; Z79.82 Long term (current) use of aspirin